=== PATIENT | male | born 1975 | race African-American/Black ===

== ENCOUNTER 2016-10-05 22:04 | Emergency (ER) | payer BC ==
--- NOTE | ~2016-10-05 | CT71 ---
[facility] A Service [facility] RADIOLOGY TEXT RESULTS PATIENT: RAEANN CASEY JR LOCATION: [facility] : 73 UNIT #: [id number] AGE: [address]: Finn Saab MD SEX: M ORDER DR: [id number] [address] [address] [id number] E MR#: [id number] Acc #: [id number] NAME: RAEANN CASEY JR : 1975 SEX: M STUDY DATE/TIME: 10/05/2016 23:11 UNIT: [facility] ROOM: STUDY DESCRIPTION: CT Head Wo Contrast Attending Physician: Finn Saab M.D. Ordering Physician: Finn Saab M.D. Primary Care Physician: Sina Ryan M.D. MEDICAL IMAGING REPORT This report is preliminary unless electronic signature is present EXAM CT head without contrast INDICATIONS Posterior headache since 8:00 a.m. today. PROCEDURE Unenhanced CT of the head. This CT exam was performed with one or more of the following radiation dose reduction techniques: Automatic exposure control, adjustment of mA and/or kV according to patient size, and iterative reconstruction. COMPARISON None FINDINGS No acute hemorrhage, abnormal mass effect, extraaxial fluid collection or hydrocephalus. No depressed calvarial fracture. The paranasal sinuses and mastoid air cells are clear. IMPRESSION No acute intracranial findings. Dictated by... Murray Castro M.D. THIS IS AN ELECTRONICALLY VERIFIED REPORT Murray Castro M.D. at 10/10/2016 7:30 AM EED/ness TD: 10/06/2016 01:51 JOB #: [id number] [facility] A Service of [facility] RADIOLOGY TEXT RESULTS PATIENT: RAEANN CASEY JR LOCATION: [facility] : 73 UNIT #: [id number] AGE: [address]: Finn Saab MD SEX: M ORDER DR: MEDICAL IMAGING REPORT Page 1 of 1 COPY
== END 2016-10-05 23:55 | disposition home or self-care (01) ==
LOC: CED 22:04
DX: R51 Headache (principal); F17.210 Nicotine dependence, cigarettes, uncomplicated
CPT/HCPCS: 70450; 99284